=== PATIENT | female | born 1990 | race American Indian/Alaskan Native ===

== ENCOUNTER 2018-01-10 16:35 | Emergency (ER) | payer MEDICAID ==
[2018-01-10] MEDS ORDERED: Betamethasone Soluspan 30 mg/5mL Inj Susp IM ONE (17:48)
[2018-01-10 17:51] VITALS: BMI 32.1
[2018-01-10 23:31] VITALS: BP 104/60; PULSE 87
--- NOTE | 2018-01-11 09:07 | OBHP ---
Datetime: 01/10/2018 17:55 IP Adm Impression: , intrauterine IP Chief Complaint Other: Betamethasone administration IP Admit Plan: Discharge home Admit Comment, IP Provider: HPI: Maryam is a 27 at 36 3/7 who presents to triage for evaluati on for betamethasone administration. She has a planned repeat at 38 weeks due to previous e mergency with her first and subsequent planned repeat with her second. 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 She will return for her second dose in 24 hours. monitoring was reassuring during her stay in triage with a reactive NST. Extremities - PN: Normal Back - PN: Not Done Breast - PN: Not Done Lungs - PN: Normal Heart - PN: Normal Thyroid - PN: Normal Neurologic - PN: Not Done HEENT - PN: Normal General - PN: Normal FHR - Baseline A Provider: 140 Comments, ACOG Physical Exam: General: awake, alert, in no acute distress HEENT: PERRL, EOMI, mucous membranes moist CV: Regular rate Respiratory: Normal work of breathing Abdomen: gravid, nontender Extremities: No edema, swelling or cyanosis Gestation - Est Wks by US: 36.3 EGA AdmitDate IP: 36.3 IP Chief Complaint: Other NICHD Variability Prov Fetus A: Moderate 6-25bpm NICHD Accel Fetus A IP Provider: 15X15 FHR Category Provider Fetus A: Category I Genitourinary Exam: Not Done
== END 2018-01-10 18:23 | disposition home or self-care (01) ==
LOC: H.EROB2 16:35
DX: Z23 Encounter for immunization (principal); Z3A.36 36 weeks gestation of pregnancy; O99.283 Endocrine, nutritional and metabolic diseases complicating pregnancy, third trimester; E03.9 Hypothyroidism, unspecified
CPT/HCPCS: 96372; 99283; J0702

== ENCOUNTER 2018-01-11 17:25 | Emergency (ER) | payer MEDICAID ==
[2018-01-10 17:51] VITALS: BMI 32.1
[2018-01-11] MEDS ORDERED: Betamethasone Soluspan 30 mg/5mL Inj Susp IM ONE (17:49)
--- NOTE | 2018-01-11 17:54 | OBHP ---
Datetime: 01/11/2018 17:51 IP Adm Impression: , intrauterine ; No Active Labor; Intact Membranes IP Admit Plan: Discharge home Admit Comment, IP Provider: 27 at 36 3/7 who presents to triage for betamethasone administratio n. She has a planned repeat at 38 weeks due to previous emergency with her first and subsequent planned repeat with her second. 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
[2018-01-11 22:49] VITALS: BP 117/70; PULSE 83; O2SAT 99
== END 2018-01-11 18:48 | disposition home or self-care (01) ==
LOC: H.EROB2 17:25
DX: Z23 Encounter for immunization (principal); O99.283 Endocrine, nutritional and metabolic diseases complicating pregnancy, third trimester; E03.9 Hypothyroidism, unspecified; Z3A.38 38 weeks gestation of pregnancy
CPT/HCPCS: 96372; 99283; J0702

== ENCOUNTER 2018-01-24 12:29 | Emergency (ER) | payer MEDICAID ==
[2018-01-24 14:34] VITALS: BMI 32.4
[2018-01-24] MEDS: Lactated Ringer's 1,000 ML IV SCH ×2 (15:10→17:05)
--- NOTE | 2018-01-24 16:24 | US ---
Date of service: 01/24/2018 PROCEDURE: Limited Ob ultrasound HISTORY: decrease movement COMPARISON: None TECHNIQUE: Transvaginal pelvic ultrasound was performed. FINDINGS: Single live intrauterine fetus in cephalic presentation. Placenta is anterior. heart rate is 125 BPM. The amniotic fluid index is 14.2 cm. biophysical profile scoring: below the movements: 2 movements: 2 tones: 2 Amniotic Fluid: 2 biophysical profile score: 8 IMPRESSION: biophysical profile score is 8, within normal limits.
--- NOTE | 2018-01-24 16:24 | OBHP ---
Datetime: 01/24/2018 13:50 IP Adm Impression: Term, intrauterine IP Admit Plan: Observation/Evaluation Admit Comment, IP Provider: This is a 27 f 38wk presented to ALEX due to Decrease mov ement. Pt state movement have decreased since today morning. Pt have not counted how many time fetus moved during the day. Pt denies any other complain, she denies vaginal bleeding, vaginal discha rge, contraction, loss of fluid. she state she is scheduled for C sec on 04/02 due to hx of 2 c-sec b efore and hx placenta abruptiom at 36 wk. Pt denies any complication in this delivery, denies gest ht n or dm htn, Pt state she had 2 dose of betamethasone on the 07 of january for precaution of premature d elivery. Allergy: any citrus fruit( itchiness) MEd: Synthroid 188, PNV PMH: hypothyroid PSH: thyrodectomy OBHx: 2 c-sec, first was emergency c-sec due placenta abruption with demise, sec c-sec was e lective. Pt LMP , denies sexual activity for past 3 mo, no hx of std social: used to smoke 5 pack a year, stopped when she found out shes , denies alcohol or d rug use 13:40 Assessment This is a 27 f 38wk presented to ALEX due to Decrease movement Pt is lying comfortable in bed with no acute distress Vitals WNL strip is reassuring Plan IV fluid LR 1 lit WIll monitor vitals and strip Discussed with Dr Fitzpatrick Resident [email or web address] Attending addendum: I saw and examined the patient myself, I did a history and physical. I reviewed the resident note above and agree with findings and management. at 38 wks EDC 02/07/18 dated by LMP 05/03/17 c/w 2nd TM u/s. pt presents with several hours of decreased movement, pelvic pressure/cramping, denies LOF/V B PNI: 1. pobhx of 2 c/s: 2012: placental abruption at 36wks, c/s, shortly after 2014: repeat c/s, term boy, uncomplicated - u/s MFM consult for hx of abruption, pt on ASA daily, s/p steroids at 36wks -hx of thyroidectomy 2 yrs ago secondary to hyperactive thyroid, synthroid 188mcg daily, at goal -Allergies: all fruits, itchy throat, hives -denies family hx -denies toxic habits x 3 -Labs reviewed wnl, GCT 124, GBS neg, HIV neg, RPR nr, hbsag neg, RI level II: no anomalies seen SVE: Long/closed/post FHR: 130, +accels, occasional decceleration, moderate variabiltiy toco: q5 min A/P: term, category I tracing w/ decreased movement -NPO -IVF -BPP -prolonged continuous monitoring María Lockhart MD Pelvic Type - PN: Not Done Extremities - PN: Normal Abdomen - PN: Normal Back - PN: Not Done Breast - PN: Not Done Lungs - PN: Normal Heart - PN: Normal Thyroid - PN: Not Done Neurologic - PN: Not Done HEENT - PN: Normal General - PN: Normal FHR - Baseline A Provider: 135 Comments, ACOG Physical Exam: PT is lying comfortable in bed with no acute distress heart: s1 s2 heard no extrea heart sound lung: clear in all quadrant abd: bs+, mild tenderness extremities: no calf tenderness Gestation - Est Wks by US: 38.3 EGA AdmitDate IP: 38.3 Vital Signs Provider: Reviewed; Within Normal Limits IP Chief Complaint: Decreased movement NICHD Variability Prov Fetus A: Moderate 6-25bpm NICHD Accel Fetus A IP Provider: 15X15 FHR Category Provider Fetus A: Category I NICHD Decel Fetus A IP Provider: None Genitourinary Exam: Not Done DTRs - PN: Not Done
[2018-01-24] MEDS ORDERED: Lactated Ringer's 1,000 ML IV SCH (17:00)
[2018-01-24 18:28] VITALS: BP 132/71; PULSE 76; RESP 18; TEMP 98.3
--- NOTE | 2018-01-24 18:49 | OBHP ---
Datetime: 01/24/2018 18:47 Admit Comment, IP Provider: DEVONTEE done, exam unchanged BPP 01/16 category 1 tracing patient DC to home adviced to stop ASA today, repeat c/s scheduled for 01/31 at 39wks gestation to see PMD within next week strict kickcounts discussed, labor precautions given IP Hx Assessment: The History has been Reviewed and is Current
[2018-01-24 22:33] VITALS: O2SAT 100
== END 2018-01-24 18:31 | disposition home or self-care (01) ==
LOC: H.EROB2 12:29 → H.L&D 14:28 → H.EROB2 18:31
DX: O36.8131 Decreased fetal movements, third trimester, fetus 1 (principal); Z3A.38 38 weeks gestation of pregnancy
CPT/HCPCS: 76818; 99281; J7120

== ENCOUNTER 2018-01-31 09:18 | Inpatient (IN) | payer MEDICAID ==
[2018-01-31 09:39] VITALS: BMI 32.2
[2018-01-31] MEDS ORDERED: Lactated Ringer's 1,000 ML IV ONE ×2 (09:41→11:32)
[2018-01-31] MEDS ORDERED: Oxytocin 30 UNIT 30 UNITS/500 ML BAG IV ONE (09:41)
[2018-01-31] MEDS ORDERED: Lactated Ringer's 1,000 ML IV SCH (09:45)
[2018-01-31 10:50] LABS: BASO % 0.6 % (0.0-2.0); EOS # 0.1 K/uL (0.0-0.7); LYMPH # 1.8 K/uL (1.0-4.3); LYMPH % 27.6 % (20.0-40.0); MEAN CELL VOLUME 90.9 fl (81.0-99.0); MEAN CORPUSCULAR HEMOGLOBIN 31.6 pg (27.0-31.0); MEAN CORPUSCULAR HGB CONC 34.8 g/dL (33.0-37.0); MEAN PLATELET VOLUME 10.2 fl (7.2-11.7); MONO # 0.4 K/uL (0.0-0.8); MONO % 6.3 % (0.0-10.0); NEUT # 4.1 K/uL (1.8-7.0); NEUT % 64.5 % (50.0-75.0); NRBC % 0.1 % (0.0-0.0); RBC 3.8 Mil/uL (3.80-5.20); WHITE BLOOD COUNT 6.3 K/uL (4.8-10.8)
[2018-01-31] MEDS ORDERED: ceFAZolin 2 GM in Sodium Chloride 0.9% 100 ML IVPB ONE (11:32)
[2018-01-31] MEDS ORDERED: ePHEDrine 50 mg/ml Inj ONE (11:47)
[2018-01-31] MEDS ORDERED: Morphine 1 mg/ml preservative-free Inj(Duramorph) ONE (11:47)
[2018-01-31] MEDS ORDERED: ceFAZolin IV 2 gm in Dextrose 2 GM/50 ML BAG IVPB ONE ×2 (11:52→17:00)
[2018-01-31] MEDS ORDERED: Morphine 1 mg/ml preservative-free Inj(Duramorph) EPI ONE (14:16)
[2018-01-31] MEDS ORDERED: DiphenhydrAMINE 50 mg/ml Inj IVP PRN ×2 (14:16→17:40)
[2018-01-31 15:06] VITALS: TEMP 98.6
[2018-01-31] MEDS ORDERED: ceFAZolin IV 1 gm in Dextrose 1 GM/50 ML BAG IVPB ONE (16:00)
[2018-01-31] MEDS ORDERED: Simethicone 80 mg Chewtab PO SCH (16:00)
--- NOTE | 2018-01-31 19:23 | OBADHP ---
Datetime: 01/31/2018 09:30 IP Chief Complaint Other: Repeat Admit Comment, IP Provider: HPI: Patient presents at 39.3 weeks for repeat . Denies contrac tions, LOF or vaginal bleeding. ROS: as above, otherwise negative History G1: Placental abruption at 36 weeks with emergency , infant soon after delivery G2: Repeat at term, no complications G3: Current Problems History of hypothyroidism PMH Iatrogenic hypothyroidism secondary to thyroid removal PSH Thyroidectomy Medications Synthroid 118mcg PNV Vit D Family History Hypothyroidism Social Lives at home with her son, denies tobacco, alcohol or drug use OBJECTIVE See PE section labs: A+, Hep B neg, HIV/RPR neg, GC/Chlamydia neg, GBS neg, Rubella Immune Assessment/Plan: 32yo at 39.3 weeks here for repeat scheduled . - Pre-op orders - Informed consent reviewed, risks/benefits/alternatives - Patient had initially signed a BTL form but has changed her mind and declined Abdomen - PN: Normal Lungs - PN: Normal Heart - PN: Normal Thyroid - PN: Abnormal HEENT - PN: Normal General - PN: Normal FHR - Baseline A Provider: 130 Comments, ACOG Physical Exam: Thyroid: surgical scar present, thyroid absent Gestation - Est Wks by US: 39.3 Vital Signs Provider: Reviewed; Within Normal Limits NICHD Variability Prov Fetus A: Moderate 6-25bpm NICHD Accel Fetus A IP Provider: [id number] NICHD Decel Fetus A IP Provider: None IP Admit Plan: Admit to unit; Initiate Section protocol Datetime: 01/24/2018 18:47 IP Hx Assessment: The History has been Reviewed and is Current Datetime: 01/24/2018 13:50 Pelvic Type - PN: Not Done Extremities - PN: Normal Back - PN: Not Done Breast - PN: Not Done Neurologic - PN: Not Done IP Chief Complaint: Decreased movement FHR Category Provider Fetus A: Category I Genitourinary Exam: Not Done DTRs - PN: Not Done EGA AdmitDate IP: 38.3 IP Adm Impression: Term, intrauterine
--- NOTE | 2018-01-31 19:26 | OBDS ---
DELIVERY PERSONNEL Delivery Doctor: Pravin Fitzpatrick MD Spindraw Operator: Maria D Boo RN Anesthesiologist: Tamika Resident: MATHEUS Reese Fellow MATERNAL INFORMATION Delivery Anesthesia: Spinal Medications in Delivery: Oxytocin Estimated Blood Loss (ml): 800 Placenta Cultured: No Maternal Complications: None Provider Comments: Repeat low flap transverse section via Pfannenstiel incision. Patient de livered viable with Apgars of 9 and 9 at one and 5 minutes respectively. Normal uterus, normal tubes and ovaries bilaterally. Estimated blood loss 800 mL Fluids 1200 mL lactated Ringer's Urine output 500 mL No complications. LABOR SUMMARY EDC: 02/04/2018 00:00 No. Babies in Womb: 1 Attempted: No Labor Anesthesia: None LABOR INFORMATION Oxytocin: N/A Group B Beta Strep: Negative Steroids Given: None Reason Steroids Not Administered: Not Applicable MEMBRANES Membranes Rupture Method: Artificial Rupture of Membranes: 01/31/2018 13:13 Length of Rupture (hrs): 0.02 Amniotic Fluid Color: Clear Amniotic Fluid Amount: Large Amniotic Fluid Odor: Normal STAGES OF LABOR Stage 3 hrs: 0 Stage 3 min: 1 CSECTION DELIVERY Primary Indication: Repeat Elective Secondary Indication: Repeat Elective CSection Urgency: Elective CSection Incidence: Repeat Labor: No Labor Elective: Elective CSection Incision: Lower Uterine Transverse Uterine Closure: Single-layer closure BABY A INFORMATION Infant Delivery Date/Time: 01/31/2018 13:14 Method of Delivery: Born in Route : No : N/A Forceps: N/A Vacuum Extraction: N/A Shoulder Dystocia : No SHOULDER DYSTOCIA BABY A Infant Delivery Date/Time: 01/31/2018 13:14 PRESENTATION/POSITION BABY A Presentation: Cephalic Cephalic Presentation: Vertex PLACENTA INFORMATION BABY A Placenta Delivery Time : 01/31/2018 13:15 Placenta Method of Delivery: Spontaneous Placenta Status: Delivered SCORES BABY A Heart Rate 1 min: >100 bpm Resp Effort 1 min: Good Cry Reflex Irritability 1 min: Cough or Sneeze or Pulls Away Muscle Tone 1 min: Active Motion Color 1 min: Body [place], Extremities Blue Resuscitation Effort 1 min: Tactile Stimulation SCORE 1 MIN: 9 Heart Rate 5 min: >100 bpm Resp Effort 5 min: Good Cry Reflex Irritability 5 min: Cough or Sneeze or Pulls Away Muscle Tone 5 min: Active Motion Color 5 min: Body [place], Extremities Blue Resuscitation Effort 5 min: Tactile Stimulation SCORE 5 MIN: 9 INFANT INFORMATION BABY A Gestational Age at Delivery: 39.3 Gestational Status: Term Outcome : Liveborn Condition : Stable Infant Sex: Male IDENTIFICATION/MEDS BABY A ID Band Location: Left Leg; Left Arm WEIGHT/LENGTH BABY A Birthweight (gms): 3820 Infant Weight (lb): 8 Infant Weight (oz): 7 CORD INFORMATION BABY A No. Cord Vessels: 3 Nuchal Cord : N/A Cord Blood Taken: Yes Infant Suction: Mouth; Nose ASSESSMENT BABY A Complications: None Physical Findings at Delivery: Within Normal Limits Respirations: Appears Normal Collar Baster/ALS Called : No Transferred To: Nursery
--- NOTE | 2018-01-31 19:33 | OBDS ---
DELIVERY PERSONNEL Delivery Doctor: Pravin Fitzpatrick MD Last Putter Away: Maria D Boo RN Anesthesiologist: Tamika Resident: MATHEUS Reese Fellow MATERNAL INFORMATION Delivery Anesthesia: Spinal Medications in Delivery: Oxytocin Estimated Blood Loss (ml): 800 Placenta Cultured: No Maternal Complications: None Provider Comments: Repeat low flap transverse section via Pfannenstiel incision. Patient de livered viable with Apgars of 9 and 9 at one and 5 minutes respectively. Normal uterus, normal tubes and ovaries bilaterally. Estimated blood loss 800 mL Fluids 1200 mL lactated Ringer's Urine output 500 mL No complications. LABOR SUMMARY EDC: 02/04/2018 00:00 EDC: 02/04/2018 00:00 EDC: 02/04/2018 00:00 EDC: 02/04/2018 00:00 No. Babies in Womb: 1 Attempted: No Labor Anesthesia: None LABOR INFORMATION Oxytocin: N/A Group B Beta Strep: Negative Group B Beta Strep: Negative Steroids Given: None Reason Steroids Not Administered: Not Applicable MEMBRANES Membranes Rupture Method: Artificial Rupture of Membranes: 01/31/2018 13:13 Length of Rupture (hrs): 0.02 Amniotic Fluid Color: Clear Amniotic Fluid Amount: Large Amniotic Fluid Odor: Normal STAGES OF LABOR Stage 3 hrs: 0 Stage 3 min: 1 CSECTION DELIVERY Primary Indication: Repeat Elective Secondary Indication: Repeat Elective CSection Urgency: Elective CSection Incidence: Repeat Labor: No Labor Elective: Elective CSection Incision: Lower Uterine Transverse Uterine Closure: Single-layer closure BABY A INFORMATION Infant Delivery Date/Time: 01/31/2018 13:14 Method of Delivery: Born in Route : No : N/A Forceps: N/A Vacuum Extraction: N/A Shoulder Dystocia : No SHOULDER DYSTOCIA BABY A Infant Delivery Date/Time: 01/31/2018 13:14 PRESENTATION/POSITION BABY A Presentation: Cephalic Cephalic Presentation: Vertex PLACENTA INFORMATION BABY A Placenta Delivery Time : 01/31/2018 13:15 Placenta Method of Delivery: Spontaneous Placenta Status: Delivered SCORES BABY A Heart Rate 1 min: >100 bpm Resp Effort 1 min: Good Cry Reflex Irritability 1 min: Cough or Sneeze or Pulls Away Muscle Tone 1 min: Active Motion Color 1 min: Body [place], Extremities Blue Resuscitation Effort 1 min: Tactile Stimulation SCORE 1 MIN: 9 Heart Rate 5 min: >100 bpm Resp Effort 5 min: Good Cry Reflex Irritability 5 min: Cough or Sneeze or Pulls Away Muscle Tone 5 min: Active Motion Color 5 min: Body [place], Extremities Blue Resuscitation Effort 5 min: Tactile Stimulation SCORE 5 MIN: 9 INFANT INFORMATION BABY A Gestational Age at Delivery: 39.3 Gestational Status: Term Outcome : Liveborn Infant Condition : Stable Infant Sex: Male IDENTIFICATION/MEDS BABY A ID Band Location: Left Leg; Left Arm WEIGHT/LENGTH BABY A Birthweight (gms): 3820 Infant Weight (lb): 8 Weight (oz): 7 CORD INFORMATION BABY A No. Cord Vessels: 3 Nuchal Cord : N/A Cord Blood Taken: Yes Suction: Mouth; Nose ASSESSMENT BABY A Infant Complications: None Physical Findings at Delivery: Within Normal Limits Infant Respirations: Appears Normal Form Tamping Machine Operator/ALS Called : No Transferred To: [place] [facility]
[2018-01-31] MEDS: Simethicone 80 mg Chewtab PO SCH (22:03)
--- NOTE | 2018-02-01 06:31 | OP ---
Copied To: Maurice Fitzpatrick MD Attending MD: Maurice Fitzpatrick MD PROCEDURE DATE: 01/31/2018 PREOPERATIVE DIAGNOSIS: Elective repeat section at 39-weeks gestational age. POSTOPERATIVE DIAGNOSIS: Elective repeat section at 39-weeks gestational age. OPERATION PERFORMED: Repeat low-flap transverse section via Pfannenstiel incision. OPERATIVE FINDINGS: Viable infant with Apgars of 9 and 9 at 1 and 5 minutes respectively. Normal uterus, normal tubes and ovaries bilaterally. ESTIMATED BLOOD LOSS: 800 mL. FLUIDS: 1200 mL of lactated Ringer's. URINE OUTPUT: 500 mL of clear urine at the end of the procedure. COMPLICATIONS: No complications. SURGEON: Maurice Fitzpatrick MD. DATABASE ADMIN: Dr. Reese. ANESTHESIOLOGIST: Dr. Lundberg. ANESTHESIA: Spinal. DESCRIPTION OF PROCEDURE: The patient was taken to the operating room where spinal anesthesia was found to be adequate. The patient was prepped and draped in normal sterile fashion in dorsal supine position with leftward tilt. A Pfannenstiel skin incision was made with a scalpel. This was carried down through to the underlying layer of fascia with a scalpel. Midline dissection was made in the fascial layer with scalpel. The fascial incision was then extended bilaterally sharply with curved Patel scissors. The fascial layer was from the underlying rectus muscles, both bluntly and sharply with curved Patel scissors. The rectus muscles were at the midline. The peritoneum was identified, tented up with the Jia clamps x2, entered sharply with Metzenbaum scissors. This peritoneal incision was then extended superiorly and inferiorly with good visualization of the urinary bladder. Bladder blade was inserted into the abdomen. The vesicouterine peritoneum was then identified, tented up with Jia clamps x2, and entered sharply with Metzenbaum scissors. This peritoneal incision was then extended bilaterally sharply with Metzenbaum scissors. The bladder flap was created digitally. The Lobito retractor was placed over the urinary bladder. The uterus was incised with the scalpel. The uterine incision was extended bilaterally bluntly. The 's head was delivered atraumatically. Nose and mouth were bulb suctioned. The remainder of the was delivered without complication. The cord was clamped and cut. The infant was handed off to awaiting pediatricians. The placenta was removed manually. The uterus was cleared off all clots and debris. The uterine incision was repaired with 0 Vicryl in a running, locked fashion. Reinspection of the uterine incision proved excellent hemostasis. The abdomen and pelvis were irrigated with copious amounts of warm normal saline. Reinspection of uterine incision proved excellent hemostasis. All instruments were removed from the patient. The peritoneal layer was closed with a running stitch of 2-0 chromic. The rectus muscles were reapproximated midline with a running stitch of 2-0 chromic. The fascial layer was closed with a running stitch of 0 Vicryl. Subcutaneous tissue was reapproximated with a running stitch of 3-0 plain. The skin was closed with jimmie. The patient tolerated the procedure well. All sponge, lap, needle counts were correct x2. The patient was given 1 g of Ancef just prior to the beginning of the procedure. There were no complications. The patient was taken to the recovery room in awake and stable condition. Maurice Fitzpatrick MD
[2018-02-01 06:33] LABS: HEMOGLOBIN 10.6 g/dL (12.0-16.0); MEAN CELL VOLUME 91.3 fl (81.0-99.0); MEAN CORPUSCULAR HGB CONC 33.9 g/dL (33.0-37.0); RBC 3.43 Mil/uL (3.80-5.20); RED CELL DISTRIBUTION WIDTH 13.6 % (11.5-14.5)
[2018-02-01] MEDS: Simethicone 80 mg Chewtab PO SCH ×4 (06:40→21:12)
[2018-02-01] MEDS: Levothyroxine 100 MCG TAB PO SCH (06:41)
[2018-02-01] MEDS: Levothyroxine 88 MCG TAB PO SCH (06:41)
[2018-02-01] MEDS ORDERED: Multivitamin With Minerals Tab PO SCH (09:00)
[2018-02-01] MEDS: Multivitamin With Minerals Tab PO SCH (09:08)
--- NOTE | 2018-02-01 10:45 | OBPPN ---
Datetime: 02/01/2018 06:09 PP Pain Prov: Within normal limits PP Nausea Prov: Denies PP Flatus Prov: Yes PP BM Prov: No PP Breasts Prov: Not Done PP Heart Prov: Normal PP Lungs Prov: Normal PP Abdomen/Uterus Prov: Normal PP Lochia Prov: Not Done PP Vulva/Perineum Prov: Not Done PP CVA Tenderness Prov: Not Done PP Extremities Prov: Normal PP Progress Prov: Normal PP Comments Phys Exam Prov: See progress note PP Impression Prov: Normal progression PP Plan Prov: Continue present management PP Progress Note Prov: S: 27 yo female 39.3 repeat c-sec on 02/01/18 evaluated on PPD1. Pt i s seen and examined at bed side. No acute event overnight. Pt Report abd pain, controlled with medica tion. Pt have no other complain. Pt want baby to be circumcised. Pt have catheter on, she have not am bulate. Pt state that she have passed gas, but no stool. She cant tell how much lochia due to cathete r. She is and using formula. PT denies fever, chills, diarrhea, nausea/vomiting, chest pain, dyspnea, and dizziness. O: 12/34.6 VS: Stable, WNL GEN: NAD Cardio: S1S2, no murmurs or extra heart sound Lungs: clear breath sounds b/l, no wheezing Abdomen: Dressing is noted on the abdomen, will be removed today at 13:14, BS+, appropriate tender ness to palpation. Uterus is firm and it's above the umbilicus by 2cm. EXT: No edema, calves nontender NEURO/PSYCH: AAOx3, no grossly focal deficits, preserved affect and mood. H/H (post ): pending Assessment/Plan: 27 yo female 39.3 after repeat c-sec on 02/01/18 evaluated on PPD1. Pt r emains afebrile, tolerating pain with medication. Tolerating diet. Anticipating discharge on 02/03/18 . Continue with current management Encourage and ambulating Remove catheter 6:30 Remove dressing at 13:14 Continue Percocet 5-325mg q6h prn for severe pain Continue Ibuprofen 600mg q6 for mild-moderate pain. F/u CBC with differential Will order Dtap before discharge Duyen PGY1 Attending Note: Patient was reviewed and discussed with resident and I Agree with the above assessment. [facility] Vital Signs Provider PP: Reviewed; Within Normal Limits
[2018-02-02] MEDS: Simethicone 80 mg Chewtab PO SCH ×4 (03:06→21:13)
[2018-02-02] MEDS: Levothyroxine 100 MCG TAB PO SCH (06:18)
[2018-02-02] MEDS: Levothyroxine 88 MCG TAB PO SCH (06:18)
[2018-02-02] MEDS: Multivitamin With Minerals Tab PO SCH (08:29)
[2018-02-02] MEDS: Oxycodone/Acetaminophen 5/325 mg Tab PO PRN ×3 (08:30→21:13)
--- NOTE | 2018-02-02 11:13 | OBPPN ---
Datetime: 02/02/2018 06:25 PP Pain Prov: Within normal limits PP Nausea Prov: Denies PP Flatus Prov: Yes PP BM Prov: No PP Breasts Prov: Not Done PP Heart Prov: Normal PP Lungs Prov: Normal PP Abdomen/Uterus Prov: Normal PP Lochia Prov: Normal PP Vulva/Perineum Prov: Not Done PP CVA Tenderness Prov: Normal PP Extremities Prov: Normal PP C/S Incision Prov: Normal PP Progress Prov: Normal PP Comments Phys Exam Prov: see progress note PP Progress Note Prov: S: 27 yo female 39.3 repeat c-sec on 02/01/18 evaluated on PPD2. Pt i s seen and examined at bed side. No acute event overnight. Pt abd pain is controlled with medication. Pt have no other complain. She was able ambulate and void freely. Pt state that she have passed gas, but no stool. Lochia is equal to menses. She is and using formula. PT denies fever, c hills, diarrhea, nausea/vomiting, chest pain, dyspnea, and dizziness. O: 34.6-' ..4 VS: Stable, WNL GEN: NAD Cardio: S1S2, no murmurs or extra heart sound Lungs: clear breath sounds b/l, no wheezing Abdomen: incision intact, no erythema noted, Staple need to be removed. BS+, appropriate tendernes s to palpation. Uterus is firm at umbilicus EXT: No edema, calves non-tender NEURO/PSYCH: AAOx3, no grossly focal deficits, preserved affect and mood. H/H (post ): ..4 Assessment/Plan: 27 yo female 39.3 after repeat c-sec on 02/01/18 evaluated on PPD2. Pt r emains afebrile, tolerating pain with medication. Tolerating diet. Anticipating tomorrow 02/03/18. Co ntinue with current management Encourage and ambulating Keep monitoring lochia, fundus and vitals Will circumcise baby today Remove staple tomorrow before discharge Continue Percocet 5-325mg q6h prn for severe pain Continue Ibuprofen 600mg q6 for mild-moderate pain. Will order Dtap before discharge Duyen PGY1 Attending Note: Patient was seen and assessd with resident and I agree with the above assessment. Vital Signs Provider PP: Reviewed; Within Normal Limits
[2018-02-03] MEDS: Simethicone 80 mg Chewtab PO SCH ×2 (05:25→10:00)
[2018-02-03] MEDS: Levothyroxine 88 MCG TAB PO SCH (06:29)
[2018-02-03] MEDS: Levothyroxine 100 MCG TAB PO SCH (06:29)
[2018-02-03] MEDS: Multivitamin With Minerals Tab PO SCH (08:45)
--- NOTE | 2018-02-03 10:42 | OBPPN ---
Datetime: 02/03/2018 07:43 PP Pain Prov: Within normal limits PP Nausea Prov: Denies PP Flatus Prov: Yes PP BM Prov: No PP Breasts Prov: Not Done PP Heart Prov: Normal PP Lungs Prov: Normal PP Abdomen/Uterus Prov: Normal PP Lochia Prov: Normal PP Vulva/Perineum Prov: Not Done PP CVA Tenderness Prov: Not Done PP Extremities Prov: Normal PP C/S Incision Prov: Normal PP Impression Prov: Normal progression PP Plan Prov: Continue present management; Discharge PP Progress Note Prov: POD 3 S: 27 y/o female s/p repeat c section on 01/31 seen and evaluated on POD 3. Pt has no dayanara rns. States she feels fine, pain is controlled. Tolerating regular diet, no n/v. No BM but passing ga s per rectum. Ambulating. Lochia_ menses. Denies lightheadedness/dizziness. Baby was circumcised yest erday. O: Vitals stable overnight, afebrile, good urine output, H/H: 10.6/31.4 NAD Cardiopulmonary exam wnl Fundus: firm Incision intact w/ staple; no bleeding or discharge Ext: no edema A/P: s/p repeat c section, doing well on POD3. Continue current management. Stable for discha rge today. Pt offered TDAP but declined. No signs of anemia, pt advised to continue taking PNV. Contr aception discussed, pt interested in IUD. Jeff, PGY2 Addendum by Dr. Craig: I have evaluated the patient independently and I agree with the above Vital Signs Provider PP: Reviewed; Within Normal Limits
--- NOTE | 2018-02-03 10:44 | OBDCSUM ---
Datetime: 02/03/2018 07:49 Discharged to, Provider: Home Follow up at, Provider: Lakes[facility]RI[facility] Disch Instr Activity: May be up to bathroom; May be up for meals; May Shower Disch Instr Diet: Regular Discharge Instructions, Provider: Routine instructions given Discharge Diagnosis, Provider: Term Delivered Discharge Time: 02/03/2018 10:42 Follow up in weeks, Provider: 1 wk, 4-6 wks Contraception discussed, Prov: Yes Disch Activity Restrictions: No exercising; No lifting; Minimize stair-climbing; No sexual activity; Nothing in vagina - [place], tampons, douche Discharge Comment, Provider: Pt is a s/p repeat C section on 01/31 with no complications. No rmal post progression. Post operative labs significant for H/H: 10.6/31.4 w/o no anemia sympto ms. Tolerating regular diet, pain controlled, and ambulating. Discharge instructions: 1. RX-- Motrin _ Percocet prn for pain 2. No records for TDAP, offered but pt declined, stated she would get in post visit. 3. ER precautions given: Fever, heavy bleeding, uncontrolled pain. Ayonas PGY2 Contraception after Delivery: IUD
[2018-02-03 20:37] VITALS: BP 118/71; PULSE 80; RESP 20; O2SAT 100
== END 2018-02-03 13:05 | disposition home or self-care (01) | DRG 371 ==
LOC: H.L&D 09:41 → H.OB/GYN 17:26
PROVIDERS: ADMIT Obstetrics & Gynecology; ATTEND Obstetrics & Gynecology
PROC: 10D00Z1 Extraction of Products of Conception, Low, Open Approach (ICD-10-PCS; principal; 2018-01-31)
PROC: 4A1HXCZ Monitoring of Products of Conception, Cardiac Rate, External Approach (ICD-10-PCS; 2018-01-31)
DX: O34.211 Maternal care for low transverse scar from previous cesarean delivery (principal); O36.63X0 Maternal care for excessive fetal growth, third trimester, not applicable or unspecified; O36.8130 Decreased fetal movements, third trimester, not applicable or unspecified; Z3A.39 39 weeks gestation of pregnancy; Z37.0 Single live birth